=== PATIENT | male | born 1955 | race African-American/Black ===

== ENCOUNTER 2018-08-04 13:20 | Emergency (ER) | payer OTHER ==
[~2018-08-04] VITALS: Ht 182.9 cm; Wt 119.5 kg
[~2018-08-04 13:20] MED LIST: AMLO-512 PO; ASPI-482 PO; HYDR25TA PO
[2018-08-04] MEDS ORDERED: MUSCLE RELAXER PO (13:51)
[2018-08-04] MEDS ORDERED: ATOR10TA84 PO (13:51)
[2018-08-04] MEDS ORDERED: METF-960 PO (13:51)
[2018-08-04 13:53] LABS: GLUCOSE,POINT OF CARE 179 MG/DL (70-110)
[2018-08-04] MEDS ORDERED: KETOROLAC TROMETHAMINE 60 MG/2 ML VIAL IM ONE (15:45)
[2018-08-04] MEDS ORDERED: METHOCARBAMOL 500 MG TABLET PO ONE (15:45)
[2018-08-04 15:46] VITALS: BP 145/82
== END 2018-08-04 16:28 | disposition home or self-care (01) ==
LOC: EMS 13:20
DX: S39.012A Strain of muscle, fascia and tendon of lower back, initial encounter (principal); I10 Essential (primary) hypertension; J40 Bronchitis, not specified as acute or chronic; F17.290 Nicotine dependence, other tobacco product, uncomplicated; Z79.84 Long term (current) use of oral hypoglycemic drugs; Z79.899 Other long term (current) drug therapy; V49.50XA Passenger injured in collision with unspecified motor vehicles in traffic accident, initial encounter; Y93.89 Activity, other specified; Y92.411 Interstate highway as the place of occurrence of the external cause; Y99.8 Other external cause status
CPT/HCPCS: 82962; 96372; 99283; J1885

== ENCOUNTER 2021-09-09 09:54 | Emergency (ER) | payer OTHER ==
[~2021-09-09] VITALS: Ht 188 cm; Wt 115.0 kg
[~2021-09-09 09:54] MED LIST changes: +AMLO-258 PO; -AMLO-512 PO; -ASPI-482 PO; +ATOR10TA84 PO; +HYDR-4870 PO; -HYDR25TA PO; +METF-1211 PO; +MUSCLE RELAXER PO
[2021-09-09] MEDS ORDERED: LOSA-381 PO (10:16)
[2021-09-09 10:30] LABS: COVID AG,FIA SOURCE NASAL SWAB
[2021-09-09 10:53] LABS: INFLUENZA TYPE A NEGATIVE FOR TYPE A (NEGATIVE); INFLUENZA TYPE B NEGATIVE FOR TYPE B (NEGATIVE)
[2021-09-09 12:04] LABS: ANION GAP 9 mmol/L (8-16); CARBON DIOXIDE 27 mmol/L (22-29); CHLORIDE 105 mmol/L (98-107); CREATININE 1.13 mg/dL (0.60-1.30); GLUCOSE,RANDOM 115 mg/dL (70-110); POTASSIUM 3.5 mmol/L (3.5-5.1); SODIUM SERUM 141 mmol/L (136-145); UREA NITROGEN, BLOOD 17 mg/dL (7-18)
[2021-09-09 12:08] LABS: GLOMERULAR FILTR. RATE CALC > 60 mL/min (>60)
[2021-09-09 12:11] LABS: ALANINE AMINOTRANSFERASE 105 U/L (12-78); ALBUMIN 3.7 g/dL (3.4-5.0); ALKALINE PHOSPHATASE 104 U/L (46-116); ASPARTATE AMINOTRANSFERASE 46 U/L (15-37); BILIRUBIN,TOTAL 0.7 mg/dL (0.1-1.0); TOTAL PROTEIN, SERUM 7.8 g/dL (6.4-8.2)
[2021-09-09 12:34] LABS: B-TYPE NATRIURETIC PEPTIDE 18 pg/mL (0-100)
[2021-09-09 12:42] VITALS: BP 149/79
== END 2021-09-09 14:05 | disposition home or self-care (01) ==
LOC: EMS 09:54
DX: R06.00 Dyspnea, unspecified (principal); I10 Essential (primary) hypertension; E11.9 Type 2 diabetes mellitus without complications; F17.210 Nicotine dependence, cigarettes, uncomplicated; Z79.899 Other long term (current) drug therapy; Z20.822 Contact with and (suspected) exposure to COVID-19
CPT/HCPCS: 71045; 80053; 83880; 87804; 93005; 99285; 36415-L1; 36415-TC